=== PATIENT | male | born 1965 | race Caucasian/White ===

== ENCOUNTER 2019-02-22 22:04 | Emergency (ER) | payer OTHER ==
[~2019-02-22] VITALS: Ht 188 cm; Wt 108.9 kg
[2019-02-22] MEDS ORDERED: BENAZEPRIL-HCT1 EA11 (22:16)
[2019-02-22] MEDS ORDERED: NORVASC5 MG (22:17)
[2019-02-22] MEDS ORDERED: ERYTHROMYCIN E3.5 G2 OPHTHALMIC ×2 (22:40→22:46)
[2019-02-22 22:53] VITALS: BP 156/88
== END 2019-02-22 22:54 | disposition home or self-care (01) ==
LOC: M.ERS 22:04
DX: S05.01XA Injury of conjunctiva and corneal abrasion without foreign body, right eye, initial encounter (principal); I10 Essential (primary) hypertension; X58.XXXA Exposure to other specified factors, initial encounter; Y93.89 Activity, other specified; Y92.89 Other specified places as the place of occurrence of the external cause; Y99.8 Other external cause status